=== PATIENT | female | born 1945 | race Caucasian/White ===

== ENCOUNTER 2016-12-24 19:49 | Observation (INO) | payer MEDICARE ==
[~2016-12-24] VITALS: Ht 160 cm; Wt 83.9 kg
[2016-12-24] MEDS ORDERED: IV NORMAL SALINE 1000ML BAG 1,000 ML IV SCH (20:06)
[2016-12-24] MEDS ORDERED: fentaNYL PF VIAL 100 MCG/2 ML VIAL IV PRN (20:15)
[2016-12-24 20:25] LABS: BASO # 0.1 x10^3/uL (0.0-0.2); BASO % 1 % (0-3); EOS % 2 % (0-3); HEMATOCRIT 39.3 % (36.0-47.0); LYMPH # 1.6 x10^3/uL (1.0-4.8); LYMPH % 20 % (24-48); MEAN CORPUSCULAR HEMOGLOBIN 28 pg (25-35); MEAN CORPUSCULAR HGB CONC 33 g/dL (31-37); MEAN CORPUSCULAR VOLUME 84 fL (79-100); MONO % 6 % (0-9); NEUT % 72 % (31-73); PLATELET COUNT 182 x10^3/uL (140-400); RED BLOOD COUNT 4.69 x10^6/uL (3.50-5.40); RED CELL DISTRIBUTION WIDTH 14.9 % (11.5-14.5)
[2016-12-24 20:37] LABS: CALCIUM 9.6 mg/dL (8.5-10.1); CREATININE 1.7 mg/dL (0.6-1.0); GFR 29.6; POTASSIUM 3.9 mmol/L (3.5-5.1)
[2016-12-24 20:39] LABS: PROTHROMBIN TIME PATIENT 12.9 SEC (11.7-14.0)
[2016-12-24 20:44] LABS: ALBUMIN 4.1 g/dL (3.4-5.0); ALBUMIN/GLOBULIN RATIO 1.2 (1.0-1.7); TOTAL BILIRUBIN 0.4 mg/dL (0.2-1.0); TOTAL PROTEIN 7.4 g/dL (6.4-8.2)
--- NOTE | 2016-12-24 21:21 | RAD ---
Abdominal and Pelvis CT, Without Contrast: History: Abdominal pain and nausea for 3 days Comparison: None. Procedure: Axial images are obtained of the abdomen and pelvis, without IV or oral contrast. CT Abdomen without Contrast: Findings: Evaluation of solid organs is limited without contrast. Evaluation of stomach and bowel is limited without oral contrast. Liver: Normal. Spleen: Normal. Pancreas: Normal. Adrenal Glands: Normal. Kidneys: There is a 2 mm nonobstructive stone in the lower pole of the left renal pelvis.. There is no free air or free fluid. There is no lymphadenopathy. Impression: Please see CT Pelvis without Contrast. End Impression. CT Pelvis without Contrast: Findings: The urinary bladder is mostly collapsed but appears normal. There is no free fluid. There is no lymphadenopathy. There is no pericolonic inflammation identified. There is moderate diverticulosis. Impression: No acute findings. End impression PQRS Compliance Statement: One or more of the following individualized dose reduction techniques were utilized for this examination: 1. Automated exposure control 2. Adjustment of the mA and/or kV according to patient size 3. Use of iterative reconstruction technique Electronically signed by: Solomon Garcia III, MD (12/24/2016 9:18 PM) [facility]
--- NOTE | 2016-12-24 21:39 | PHYS DOC ---
Past Medical History Past Medical History: Diabetes-Type II, Hypertension, Other Additional Past Medical Histor: obesity, "bad knees", incontinent Past Surgical History: Appendectomy, Cholecystectomy, Hysterectomy, Other Additional Past Surgical Histo: prolapsed bladder Alcohol Use: None Drug Use: None Adult General Chief Complaint Chief Complaint: ABDOMINAL PAIN HPI HPI Patient is a 71 year old female who presents with abdominal pain and inability to eat for 4 days now. It started Thursday in the middle of the night. She has had nausea which is much worse if she tries to eat or drink anything at all. She hasn't been able to eat or drink. She believe she is dehydrated. No vomiting. No diarrhea. She has a history of diverticulitis years ago and it kind of seems like that to her. She has had a cholecystectomy and appendectomy. Patient talk to her doctor at [facility] who told her to go to the ER and have the CT scan. She went to the ER at and states she was there all afternoon waiting in the waiting room, never did get back to a room, and she finally left and came here. Review of Systems Review of Systems Constitutional: Denies fever or chills [] Eyes: Denies change in visual acuity, redness, or eye pain [] HENT: Denies nasal congestion or sore throat [] Respiratory: Denies cough or shortness of breath [] Cardiovascular: Denies chest pain GI: As in history of present illness : Denies dysuria or hematuria [] Musculoskeletal: Denies back pain or joint pain [] Integument: Denies rash or skin lesions [] Neurologic: Denies headache, focal weakness or sensory changes [] Current Medications Current Medications Current Medications Medications (Trade) Dose Ordered Sig/[place] Start Time Stop Time Status Last Admin Dose Admin Fentanyl Citrate (Fentanyl 2ml Vial) 25 mcg PRN Q15MIN PRN 12/24/16 20:15 12/25/16 20:14 Sodium Chloride 1,000 ml @ 1,000 mls/hr Q1H 12/24/16 20:06 12/24/16 21:05 DC 12/24/16 20:15 1,000 MLS/HR Allergies Allergies Physical Exam Physical Exam Constitutional: Well developed, well nourished, no acute distress, non-toxic appearance. Alert, mentating normally. HENT: Normocephalic, atraumatic, bilateral external ears normal, oropharynx is dry, nose normal. [] Eyes: conjunctiva normal, no discharge. [] Neck: Normal range of motion, no stridor. [] Cardiovascular:Heart rate regular rhythm, no murmur [] Lungs & Thorax: Bilateral breath sounds clear to auscultation [] Abdomen: Nondistended, bowel sounds normal, soft, mildly tender to palpation throughout, no localized tenderness, no rebound or guarding, no masses, no pulsatile mass. Skin: Warm, dry, no erythema, no rash. [] Extremities: No tenderness, no cyanosis, no clubbing, ROM intact, no edema. [] Neurologic: Alert and oriented X 3, normal motor function, normal sensory function, no focal deficits noted. [] Current Patient Data Vital Signs Vital Signs Date Time Temp Pulse Resp B/P (MAP) Pulse Ox O2 Delivery O2 Flow Rate FiO2 12/24/16 21:09 87 16 115/66 (82) 95 Room Air 12/24/16 19:55 98.3 98.3 Lab Values Laboratory Tests Test 12/24/16 20:10 White Blood Count 8.0 x10^3/uL (4.0-11.0) Red Blood Count 4.69 x10^6/uL (3.50-5.40) Hemoglobin 13.0 g/dL (12.0-15.5) Hematocrit 39.3 % (36.0-47.0) Mean Corpuscular Volume 84 fL (79-100) Mean Corpuscular Hemoglobin 28 pg (25-35) Mean Corpuscular Hemoglobin Concent 33 g/dL (31-37) Red Cell Distribution Width 14.9 % (11.5-14.5) H Platelet Count 182 x10^3/uL (140-400) Neutrophils (%) (Auto) 72 % (31-73) Lymphocytes (%) (Auto) 20 % (24-48) L Monocytes (%) (Auto) 6 % (0-9) Eosinophils (%) (Auto) 2 % (0-3) Basophils (%) (Auto) 1 % (0-3) Neutrophils # (Auto) 5.7 x10^3uL (1.8-7.7) Lymphocytes # (Auto) 1.6 x10^3/uL (1.0-4.8) Monocytes # (Auto) 0.5 x10^3/uL (0.0-1.1) Eosinophils # (Auto) 0.1 x10^3/uL (0.0-0.7) Basophils # (Auto) 0.1 x10^3/uL (0.0-0.2) Prothrombin Time 12.9 SEC (11.7-14.0) Prothrombin Time INR 1.0 (0.8-1.1) PTT 28 SEC (24-38) Sodium Level 139 mmol/L (136-145) Potassium Level 3.9 mmol/L (3.5-5.1) Chloride Level 100 mmol/L (98-107) Carbon Dioxide Level 26 mmol/L (21-32) Anion Gap 13 (6-14) Blood Urea Nitrogen 39 mg/dL (7-20) H Creatinine 1.7 mg/dL (0.6-1.0) H Estimated GFR (Cockcroft-Gault) 29.6 BUN/Creatinine Ratio 23 (6-20) H Glucose Level 132 mg/dL (70-99) H Calcium Level 9.6 mg/dL (8.5-10.1) Total Bilirubin 0.4 mg/dL (0.2-1.0) Aspartate Amino Transferase (AST) 18 U/L (15-37) Alanine Aminotransferase (ALT) 23 U/L (14-59) Alkaline Phosphatase 94 U/L (46-116) Total Protein 7.4 g/dL (6.4-8.2) Albumin 4.1 g/dL (3.4-5.0) Albumin/Globulin Ratio 1.2 (1.0-1.7) Lipase 171 U/L (73-393) Laboratory Tests 12/24/16 20:10 Laboratory Tests 12/24/16 20:10 EKG EKG 12-lead EKG read by ak. Sinus rhythm. Heart rate 99. There are no acute ST or T wave changes indicative of ischemia or infarction. No STEMI. 1999[] Radiology/Procedures Radiology/Procedures CT scan of the abdomen and pelvis read by the radiologist. No acute findings. [] Course & Med Decision Making Course & Med Decision Making Pertinent Labs and Imaging studies reviewed. (See chart for details) 71-year-old female presents with abdominal pain and discomfort for 4 days now with nausea but no vomiting, and anorexia. The patient appears clinically dry, she is tachycardic. IV fluids were initiated. Labs, CT scan unremarkable for acute findings. The patient does appear dry with BUNs 39 creatinine 1.7. I'm concerned about her abdominal complaints for 4 days now without any finding to explain those today in the ED. I believe we should admit her for IV fluids and observation of her abdominal pain. I discussed the case with Dr. Lake, [facility] medicine. She will admit the patient. I wrote bridge orders. [] Dragon Disclaimer Dragon Disclaimer This electronic medical record was generated, in whole or in part, using a voice recognition dictation system. Departure Departure Impression: Primary Impression: Abdominal pain Additional Impressions: Nausea alone Dehydration Elevated serum creatinine Disposition: ADMITTED INPATIENT Admitting Physician: Glenna Lake Condition: STABLE Referrals: UNKNOWN PCP NAME (PCP) Problem Qualifiers RIN AMEZCUA MD Dec 24, 2016 21:39
[2016-12-24] MEDS ORDERED: ONDANSETRON PF 4 MG/2 ML VIAL. IV PRN (22:15)
[2016-12-24] MEDS: IV NORMAL SALINE 1000ML BAG 1,000 ML IV SCH (22:16)
[2016-12-24 23:01] VITALS: BP 139/65
[2016-12-25] MEDS ORDERED: LISI1TAB5 PO (00:10)
[2016-12-25] MEDS ORDERED: METO50TA2 PO (00:10)
[2016-12-25] MEDS ORDERED: METF500T4 PO (00:10)
[2016-12-25] MEDS ORDERED: vitamin d (00:11)
[2016-12-25 03:17] VITALS: BP 119/56
--- NOTE | 2016-12-25 06:57 | EKG ---
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
[2016-12-25 07:00] VITALS: BP 116/59
[2016-12-25] MEDS: IV NORMAL SALINE 1000ML BAG 1,000 ML IV SCH ×2 (08:25→18:44)
--- NOTE | 2016-12-25 09:55 | PDOC1 ---
History and Physical Date of Admission Date of Admission DATE: 12/25/16 TIME: 09:00 Identification/Chief Complaint Chief Complaint Abd pain Problems: Source Source: Patient History of Present Illness History of Present Illness Mrs Panda is a 71 y/o woman with DM, HTN and prior history of diverticulitis, who presented to the ER with a 4 day history of nausea and right sided abd pain. She denies any vomiting, but has been unable to eat as just the thought turns her stomach. She has chronic diarrhea 1-3 times a day normally, this has not changed in the past week. The pain is in her right side , cramping and waxing and waning, similar to her prior episode of diverticulosis. She is s/p appendectomy and cholecystectomy. She denies any fever or chills, byt endorses generalized myalgias and arthralgias. 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 In the ER, CT abd showed moderate diverticulosis, but no acute findings, incl no inflammatory stranding. Past Medical History Cardiovascular: HTN GI: Diverticulosis, Other (chronic diarrhea) Renal/: Urinary Incontinence Endocrine: Diabetes Past Surgical History Past Surgical History: Appendectomy, Cholecystectomy, Hysterectomy, Other ( bladder augmentation) Family History Family History: Cancer, Coronary Artery Disease, Diabetes Social History Smoke: No ALCOHOL: none Drugs: None Current Medications Current Medications Current Medications Fentanyl Citrate (Fentanyl 2ml Vial) 25 mcg PRN Q15MIN PRN IV PAIN GREATER THAN 3/10; Start 12/24/16 at 20:15; Stop 12/25/16 at 20:14 Sodium Chloride 1,000 ml @ 1,000 mls/hr Q1H IV Last administered on 12/24/16t 20:15; Start 12/24/16 at 20:06; Stop 12/24/16 at 21:05; Status DC Ondansetron HCl (Zofran) 4 mg PRN Q8HRS PRN IV NAUSEA/VOMITING; Start 12/24/16 at 22:15; Stop 12/25/16 at 22:14 Sodium Chloride 1,000 ml @ 100 mls/hr Q10H IV Last administered on 12/25/16t 08:25; Start 12/24/16 at 22:01; Stop 12/25/16 at 22:00 Acetaminophen (Tylenol) 650 mg PRN Q6HRS PRN PO MILD PAIN; Start 12/24/16 at 23 :00 Active Scripts Active Reported [vitamin d] Lisinopril-Hctz 20-12.5 Mg Tab (Lisinopril/Hydrochlorothiazide) 1 Each Tablet 1 Tab PO BID Metformin Hcl 500 Mg Tablet 500 Mg PO BIDWMEALS Metoprolol Tartrate 50 Mg Tablet 1 Tab PO BID Allergies Allergies: Coded Allergies: clindamycin (Verified Allergy, Intermediate, 12/24/16) iodine (Verified Allergy, Intermediate, 12/24/16) sulfamethoxazole (Verified Allergy, Intermediate, 12/24/16) trimethoprim (Verified Allergy, Intermediate, 12/24/16) ROS Review of System positive as per HPI. rest of organ system review does not reveal any findings Physical Exam General: Alert, Oriented X3, Cooperative, No acute distress Lungs: Clear to auscultation Heart: RRR Abdomen: Normal bowel sounds, Soft, Other (right TTP, worse in LQ) Extremities: No clubbing, No edema Skin: No rashes Neuro: Normal speech Psych/Mental Status: Mental status NL Vitals Vitals Vital Signs Date Time Temp Pulse Resp B/P (MAP) Pulse Ox O2 Delivery O2 Flow Rate FiO2 12/25/16 08:25 Room Air 12/25/16 07:00 97.4 83 18 116/59 (78) 95 97.4 Labs Labs Laboratory Tests Test 12/24/16 20:10 12/25/16 08:33 White Blood Count 8.0 x10^3/uL (4.0-11.0) Red Blood Count 4.69 x10^6/uL (3.50-5.40) Hemoglobin 13.0 g/dL (12.0-15.5) Hematocrit 39.3 % (36.0-47.0) Mean Corpuscular Volume 84 fL (79-100) Mean Corpuscular Hemoglobin 28 pg (25-35) Mean Corpuscular Hemoglobin Concent 33 g/dL (31-37) Red Cell Distribution Width 14.9 % (11.5-14.5) Platelet Count 182 x10^3/uL (140-400) Neutrophils (%) (Auto) 72 % (31-73) Lymphocytes (%) (Auto) 20 % (24-48) Monocytes (%) (Auto) 6 % (0-9) Eosinophils (%) (Auto) 2 % (0-3) Basophils (%) (Auto) 1 % (0-3) Neutrophils # (Auto) 5.7 x10^3uL (1.8-7.7) Lymphocytes # (Auto) 1.6 x10^3/uL (1.0-4.8) Monocytes # (Auto) 0.5 x10^3/uL (0.0-1.1) Eosinophils # (Auto) 0.1 x10^3/uL (0.0-0.7) Basophils # (Auto) 0.1 x10^3/uL (0.0-0.2) Prothrombin Time 12.9 SEC (11.7-14.0) Prothromb Time International Ratio 1.0 (0.8-1.1) Activated Partial Thromboplast Time 28 SEC (24-38) Sodium Level 139 mmol/L (136-145) Potassium Level 3.9 mmol/L (3.5-5.1) Chloride Level 100 mmol/L (98-107) Carbon Dioxide Level 26 mmol/L (21-32) Anion Gap 13 (6-14) Blood Urea Nitrogen 39 mg/dL (7-20) Creatinine 1.7 mg/dL (0.6-1.0) Estimated GFR (Cockcroft-Gault) 29.6 BUN/Creatinine Ratio 23 (6-20) Glucose Level 132 mg/dL (70-99) Calcium Level 9.6 mg/dL (8.5-10.1) Total Bilirubin 0.4 mg/dL (0.2-1.0) Aspartate Amino Transf (AST/SGOT) 18 U/L (15-37) Alanine Aminotransferase (ALT/SGPT) 23 U/L (14-59) Alkaline Phosphatase 94 U/L (46-116) Total Protein 7.4 g/dL (6.4-8.2) Albumin 4.1 g/dL (3.4-5.0) Albumin/Globulin Ratio 1.2 (1.0-1.7) Lipase 171 U/L (73-393) Glucose (Fingerstick) 128 mg/dL (70-99) Laboratory Tests Test 12/24/16 20:10 12/25/16 08:33 White Blood Count 8.0 x10^3/uL (4.0-11.0) Red Blood Count 4.69 x10^6/uL (3.50-5.40) Hemoglobin 13.0 g/dL (12.0-15.5) Hematocrit 39.3 % (36.0-47.0) Mean Corpuscular Volume 84 fL (79-100) Mean Corpuscular Hemoglobin 28 pg (25-35) Mean Corpuscular Hemoglobin Concent 33 g/dL (31-37) Red Cell Distribution Width 14.9 % (11.5-14.5) Platelet Count 182 x10^3/uL (140-400) Neutrophils (%) (Auto) 72 % (31-73) Lymphocytes (%) (Auto) 20 % (24-48) Monocytes (%) (Auto) 6 % (0-9) Eosinophils (%) (Auto) 2 % (0-3) Basophils (%) (Auto) 1 % (0-3) Neutrophils # (Auto) 5.7 x10^3uL (1.8-7.7) Lymphocytes # (Auto) 1.6 x10^3/uL (1.0-4.8) Monocytes # (Auto) 0.5 x10^3/uL (0.0-1.1) Eosinophils # (Auto) 0.1 x10^3/uL (0.0-0.7) Basophils # (Auto) 0.1 x10^3/uL (0.0-0.2) Prothrombin Time 12.9 SEC (11.7-14.0) Prothromb Time International Ratio 1.0 (0.8-1.1) Activated Partial Thromboplast Time 28 SEC (24-38) Sodium Level 139 mmol/L (136-145) Potassium Level 3.9 mmol/L (3.5-5.1) Chloride Level 100 mmol/L (98-107) Carbon Dioxide Level 26 mmol/L (21-32) Anion Gap 13 (6-14) Blood Urea Nitrogen 39 mg/dL (7-20) Creatinine 1.7 mg/dL (0.6-1.0) Estimated GFR (Cockcroft-Gault) 29.6 BUN/Creatinine Ratio 23 (6-20) Glucose Level 132 mg/dL (70-99) Calcium Level 9.6 mg/dL (8.5-10.1) Total Bilirubin 0.4 mg/dL (0.2-1.0) Aspartate Amino Transf (AST/SGOT) 18 U/L (15-37) Alanine Aminotransferase (ALT/SGPT) 23 U/L (14-59) Alkaline Phosphatase 94 U/L (46-116) Total Protein 7.4 g/dL (6.4-8.2) Albumin 4.1 g/dL (3.4-5.0) Albumin/Globulin Ratio 1.2 (1.0-1.7) Lipase 171 U/L (73-393) Glucose (Fingerstick) 128 mg/dL (70-99) VTE Prophylaxis Ordered VTE Prophylaxis Devices: No VTE Pharmacological Prophylaxi: Yes Assessment/Plan Assessment/Plan Mrs Panda is a 71 y/o woman with HTN, DM and history of right sided diverticulitis who presented to the ER with abd pain and nausea ans resultant dehydration. Clinical suspicion is for diverticulitis, although not confirmed by CT. Will give her bowel rest, advance diet as tolerated. Start cipro and flagyl empirically She is receiving IV hydration; will monitor fluid status and electrolytes. Potassium was low as admission and is being repleted. Her creatinine is moderately elevated, which is most likely to dehydration. Monitor closely. Avoid nephrotoxic meds, incl metformin and HCTZ. Her DM is currently well controlled. will add ISS to her regimen. The rationale of the medication switch was explained to her; she was afraid of being placed on insulin permanently. Her blood pressure is currently ok; home medications, minus HCTZ will be continued. For prophylaxis, she will receive heparin SQ and H2 denzel. SALLY MARTIN MD Dec 25, 2016 09:55
[2016-12-25 11:00] VITALS: BP 112/47
[2016-12-25 15:00] VITALS: BP 116/55
[2016-12-25] MEDS: ACETAMINOPHEN 325 MG TABLET. PO PRN (16:44)
[2016-12-25] MEDS: CIPROFLOXACIN HCL 250 MG TABLET. PO SCH (18:44)
[2016-12-25] MEDS: metroNIDAZOLE 500 MG TABLET PO SCH ×2 (18:44→23:03)
[2016-12-25 19:20] VITALS: BP 114/55
[2016-12-25] MEDS: METOPROLOL TART IMMED RELEASE 50 MG TABLET. PO SCH (21:04)
[2016-12-25 23:20] VITALS: BP 118/58
[2016-12-26] MEDS: ACETAMINOPHEN 325 MG TABLET. PO PRN (01:38)
[2016-12-26 03:20] VITALS: BP 115/60
[2016-12-26] MEDS: metroNIDAZOLE 500 MG TABLET PO SCH ×2 (05:31→14:33)
[2016-12-26 07:22] VITALS: BP 130/55
[2016-12-26] MEDS ORDERED: LISINOPRIL 20 MG TABLET PO SCH (09:00)
[2016-12-26] MEDS: CIPROFLOXACIN HCL 250 MG TABLET. PO SCH (09:08)
[2016-12-26] MEDS: METOPROLOL TART IMMED RELEASE 50 MG TABLET. PO SCH (09:09)
[2016-12-26 11:21] VITALS: BP 109/60
--- NOTE | 2016-12-26 13:32 | PDOC ---
PROGRESS NOTES Chief Complaint Chief Complaint Abd pain: ASSESSMENT AND PLAN: 1. Abd pain: suspected diverticulitis. clinically much improved. 2. Dehydration: resolved 3. KVNG: vasomotor, resolved with IVF 4. DM2: controlled on current regimen 5. HTN: no home meds 6. Prophylaxis: heparin SQ and H2 denzel. 7. Dispo: would like to go home. d/w with Abx History of Present Illness History of Present Illness in good spirits, abd pain resolved. Vitals Vitals Vital Signs Date Time Temp Pulse Resp B/P (MAP) Pulse Ox O2 Delivery O2 Flow Rate FiO2 12/26/16 11:21 98.3 73 18 109/60 (76) 96 Room Air 98.3 Physical Exam General: Alert, Oriented X3, Cooperative, No acute distress Heart: Regular rate Lungs: Clear Abdomen: Normal bowel sounds, Soft, No tenderness Extremities: No clubbing, No edema Skin: No rashes Labs LABS Laboratory Tests Test 12/25/16 16:47 12/26/16 07:17 Glucose (Fingerstick) 178 mg/dL (70-99) 157 mg/dL (70-99) SALLY MARTIN MD Dec 26, 2016 13:32
[2016-12-26 14:27] LABS: BASO % 1 % (0-3); EOS % 5 % (0-3); HEMATOCRIT 34.3 % (36.0-47.0); HEMOGLOBIN 11.2 g/dL (12.0-15.5); LYMPH % 23 % (24-48); MEAN CORPUSCULAR HEMOGLOBIN 28 pg (25-35); MEAN CORPUSCULAR HGB CONC 33 g/dL (31-37); MEAN CORPUSCULAR VOLUME 85 fL (79-100); MONO % 8 % (0-9); NEUT % 63 % (31-73); PLATELET COUNT 157 x10^3/uL (140-400); RED BLOOD COUNT 4.03 x10^6/uL (3.50-5.40); RED CELL DISTRIBUTION WIDTH 14.6 % (11.5-14.5); WHITE BLOOD COUNT 4.2 x10^3/uL (4.0-11.0)
[2016-12-26 14:33] LABS: CALCIUM 8.9 mg/dL (8.5-10.1); CREATININE 0.9 mg/dL (0.6-1.0); GFR 61.7; MAGNESIUM 1.4 mg/dL (1.8-2.4); POTASSIUM 4.2 mmol/L (3.5-5.1)
[2016-12-26] MEDS ORDERED: METR500T PO (15:01)
[2016-12-26] MEDS ORDERED: CIPR500T94 PO (15:01)
[2016-12-26 15:05] VITALS: BP 114/44
--- NOTE | 2016-12-27 23:48 | DS ---
DATE OF DISCHARGE: 12/26/2016 CHIEF COMPLAINT: Abdominal pain. HOSPITAL COURSE: The patient is a 71-year-old woman with diabetes and hypertension as well as history of diverticulitis who presented to the Emergency Room with a 4-day history of nausea and right-sided abdominal pain, had not been vomiting, but had been completely unable to take anything p.o. This was similar to prior symptoms with diverticulitis. In the Emergency Room, CT did not reveal any inflammatory signs. Nevertheless, she was admitted with a presumptive diagnosis of diverticulitis and started on Cipro and Flagyl. She was placed on clear fluids with IV hydration and antiemetics p.r.n. She actually improved significantly from a GI standpoint and her diet was advanced. In her labs, she had acute kidney injury with a creatinine of 1.7. This actually improved with hydration down to a creatinine of 0.9. Metformin had been held during her hospitalization and her blood sugars were monitored with insulin sliding scale, remaining very well controlled. PHYSICAL EXAMINATION: VITAL SIGNS: Show a blood pressure of 109/60, heart rate of 73, respiratory rate at 18. She was afebrile. GENERAL: This is an obese 71-year-old woman, alert and oriented, in no acute distress. LUNGS: Clear. HEART: Regular rate and rhythm. ABDOMEN: Has positive bowel sounds, soft, nontender. EXTREMITIES: Showed no edema. DISCHARGE DATE: 12/26/2016. DISCHARGE DIAGNOSIS: Abdominal pain, diverticulitis. DISCHARGE DISPOSITION: To home. DISCHARGE CONDITION: Improved. DISCHARGE MEDICATIONS: Please refer to MAR. DISCHARGE INSTRUCTIONS: The patient will follow up with her PCP in 1-2 weeks. SALLY MART[address] MD [address]: RIMA/nts JOB#: [id number] / [id number] TISH
== END 2016-12-26 16:20 | disposition home or self-care (01) ==
LOC: ER 19:49 → 6 SOUTH 21:52
PROVIDERS: ADMIT Internal Medicine; ATTEND Internal Medicine
DX: K57.92 Diverticulitis of intestine, part unspecified, without perforation or abscess without bleeding (principal); N17.9 Acute kidney failure, unspecified; E86.0 Dehydration; E11.9 Type 2 diabetes mellitus without complications; I10 Essential (primary) hypertension; E66.9 Obesity, unspecified; Z90.49 Acquired absence of other specified parts of digestive tract; Z83.3 Family history of diabetes mellitus; Z82.49 Family history of ischemic heart disease and other diseases of the circulatory system
CPT/HCPCS: 36415; 74176; 80048; 80053; 82962; 83690; 83735; 85027; 85610; 85730; 93005; 96360; 96361; 99285; G0378; J7030; G0379; A6539

== ENCOUNTER 2018-08-22 17:25 | Inpatient (IN) | payer MEDICARE ==
[~2018-08-22] VITALS: Ht 160 cm; Wt 86.2 kg
[~2018-08-22 17:25] MED LIST: CIPR500T94 PO; LISI1TAB5 PO; METF500T16 PO; METO50TA6 PO; METR500T PO; vitamin d
[2018-08-22 18:47] LABS: BASO % 0 % (0-3); EOS % 0 % (0-3); HEMOGLOBIN 12.5 g/dL (12.0-15.5); LYMPH # 0.6 x10^3/uL (1.0-4.8); LYMPH % 13 % (24-48); MEAN CORPUSCULAR HEMOGLOBIN 27 pg (25-35); MEAN CORPUSCULAR HGB CONC 33 g/dL (31-37); MEAN CORPUSCULAR VOLUME 82 fL (79-100); MONO # 0.3 x10^3/uL (0.0-1.1); MONO % 7 % (0-9); NEUT % 81 % (31-73); PLATELET COUNT 150 x10^3/uL (140-400); RED BLOOD COUNT 4.63 x10^6/uL (3.50-5.40); RED CELL DISTRIBUTION WIDTH 14.9 % (11.5-14.5)
[2018-08-22 18:55] LABS: BILIRUBIN,URINE NEGATIVE (NEG); CLARITY,URINE CLEAR; COLOR,URINE YELLOW; NITRITE,URINE NEGATIVE (NEG); PROTEIN,URINE 100 mg/dL (NEG-TRACE); UROBILINOGEN,URINE 0.2 mg/dL (0.2 mg/dL)
[2018-08-22 18:56] LABS: CALCIUM 8.6 mg/dL (8.5-10.1); CREATININE 1.3 mg/dL (0.6-1.0); GFR 40.2; POTASSIUM 3.7 mmol/L (3.5-5.1)
[2018-08-22 19:03] LABS: ALBUMIN 3.7 g/dL (3.4-5.0); ALBUMIN/GLOBULIN RATIO 1.3 (1.0-1.7); MAGNESIUM 1.2 mg/dL (1.8-2.4); TOTAL BILIRUBIN 0.2 mg/dL (0.2-1.0); TOTAL PROTEIN 6.6 g/dL (6.4-8.2)
[2018-08-22 19:05] LABS: RBC,URINE 0 /HPF (0-2)
[2018-08-22 19:06] LABS: BACTERIA,URINE 0 /HPF (0-FEW); HYALINE CASTS, URINE MANY /HPF; SQUAMOUS EPITHELIAL CELL,UR MANY /LPF; WBC,URINE RARE /HPF (0-4)
--- NOTE | 2018-08-22 19:06 | PHYS DOC ---
Past Medical History Past Medical History: Arthritis, Diabetes-Type II, Hypertension Additional Past Medical Histor: obesity, "bad knees", incontinent Past Surgical History: Appendectomy, Cholecystectomy, Hysterectomy, Other Additional Past Surgical Histo: prolapsed bladder Alcohol Use: None Drug Use: None Adult General Chief Complaint Chief Complaint: WEAKNESS/GENERALIZED HPI HPI Patient is a 73 year old female who presents to emergency room with complaints of a continued productive cough with clear sputum, body aches, fatigue, and diarrhea. Patient states her symptoms began 4 days ago, she was seen at her primary care provider's office 3 days ago and had testing for influenza that was negative. She was diagnosed with bronchitis on Thursday. She denies any nausea , vomiting, abdominal pain, or fever. At this time patient states she feels weak all over, she denies any chest pain, and reports shortness of breath with cough. Review of Systems Review of Systems Constitutional: Denies fever or chills ; reports generalized fatigue and weakness. ] Eyes: Denies changes HENT: Denies nasal congestion or sore throat [] Respiratory: See HPI Cardiovascular: No additional information not addressed in HPI [] GI: Denies abdominal pain, nausea, vomiting,or diarrhea [] : Denies dysuria or hematuria [] Musculoskeletal: reports generalized body aches Integument: Denies rash or skin lesions [] Neurologic: Denies headache complete systems were reviewed and found to be within normal limits, except as documented in this note. Allergies Allergies Allergies Coded Allergies Type Severity Reaction Last Updated Verified clindamycin Allergy Intermediate 12/24/16 Yes iodine Allergy Intermediate 12/24/16 Yes sulfamethoxazole Allergy Intermediate 12/24/16 Yes trimethoprim Allergy Intermediate 12/24/16 Yes Physical Exam Physical Exam Constitutional: Well developed, well nourished, no acute distress, ill appearance. [] HENT: Normocephalic, atraumatic, bilateral external ears normal, oropharynx dry , no oral exudates, nose normal. [] Eyes: conjunctiva normal, no discharge. [] Neck: Normal range of motion, no stridor. [] Cardiovascular: tachycardic rhythm, no murmur [] Lungs & Thorax: Bilateral breath sounds clear to auscultation, diminished in bases bilat [] Skin: Warm, dry, no erythema, no rash. [] Extremities: No cyanosis, no clubbing, ROM intact, no edema. [] Neurologic: Alert and oriented X 3, no focal deficits noted. [] Psychologic: Affect normal, judgement normal, mood normal. [] Current Patient Data Vital Signs Vital Signs Date Time Temp Pulse Resp B/P (MAP) Pulse Ox O2 Delivery O2 Flow Rate FiO2 08/22/18 17:30 98.2 63 22 125/53 (77) 93 Room Air 98.2 Lab Values Laboratory Tests Test 08/22/18 18:15 08/22/18 18:25 08/22/18 18:30 Urine Collection Type Void Urine Color Yellow Urine Clarity Clear Urine pH 5.0 Urine Specific [place] 1.020 Urine Protein 100 mg/dL (NEG-TRACE) Urine Glucose (UA) Negative mg/dL (NEG) Urine Ketones (Stick) Trace mg/dL (NEG) Urine Blood Negative (NEG) Urine Nitrite Negative (NEG) Urine Bilirubin Negative (NEG) Urine Urobilinogen Dipstick 0.2 mg/dL (0.2 mg/dL) Urine Leukocyte Esterase Negative (NEG) Urine RBC 0 /HPF (0-2) Urine WBC Rare /HPF (0-4) Urine Squamous Epithelial Cells Many /LPF Urine Bacteria 0 /HPF (0-FEW) Urine Hyaline Casts Many /HPF White Blood Count 5.0 x10^3/uL (4.0-11.0) Red Blood Count 4.63 x10^6/uL (3.50-5.40) Hemoglobin 12.5 g/dL (12.0-15.5) Hematocrit 38.0 % (36.0-47.0) Mean Corpuscular Volume 82 fL (79-100) Mean Corpuscular Hemoglobin 27 pg (25-35) Mean Corpuscular Hemoglobin Concent 33 g/dL (31-37) Red Cell Distribution Width 14.9 % (11.5-14.5) H Platelet Count 150 x10^3/uL (140-400) Neutrophils (%) (Auto) 81 % (31-73) H Lymphocytes (%) (Auto) 13 % (24-48) L Monocytes (%) (Auto) 7 % (0-9) Eosinophils (%) (Auto) 0 % (0-3) Basophils (%) (Auto) 0 % (0-3) Neutrophils # (Auto) 4.0 x10^3uL (1.8-7.7) Lymphocytes # (Auto) 0.6 x10^3/uL (1.0-4.8) L Monocytes # (Auto) 0.3 x10^3/uL (0.0-1.1) Eosinophils # (Auto) 0.0 x10^3/uL (0.0-0.7) Basophils # (Auto) 0.0 x10^3/uL (0.0-0.2) Sodium Level 135 mmol/L (136-145) L Potassium Level 3.7 mmol/L (3.5-5.1) Chloride Level 99 mmol/L (98-107) Carbon Dioxide Level 24 mmol/L (21-32) Anion Gap 12 (6-14) Blood Urea Nitrogen 27 mg/dL (7-20) H Creatinine 1.3 mg/dL (0.6-1.0) H Estimated GFR (Cockcroft-Gault) 40.2 BUN/Creatinine Ratio 21 (6-20) H Glucose Level 165 mg/dL (70-99) H Calcium Level 8.6 mg/dL (8.5-10.1) Magnesium Level 1.2 mg/dL (1.8-2.4) L Total Bilirubin 0.2 mg/dL (0.2-1.0) Aspartate Amino Transferase (AST) 34 U/L (15-37) Alanine Aminotransferase (ALT) 32 U/L (14-59) Alkaline Phosphatase 77 U/L (46-116) Creatine Kinase 666 U/L (26-192) H Creatine Kinase MB (Mass) 1.4 ng/mL (0.0-3.6) Creatine Kinase MB Relative Index 0.2 % (0-4) Troponin I Quantitative < 0.017 ng/mL (0.000-0.055) Total Protein 6.6 g/dL (6.4-8.2) Albumin 3.7 g/dL (3.4-5.0) Albumin/Globulin Ratio 1.3 (1.0-1.7) Influenza Type A Antigen Positive (NEGATIVE) Influenza Type B Antigen Negative (NEGATIVE) Laboratory Tests 08/22/18 18:25 Laboratory Tests 08/22/18 18:25 EKG EKG 1914- Sinus tach, no STEMI, rate 101, read by Dr Barrientos.[] Radiology/Procedures Radiology/Procedures RLL pneumonia read by Dr. Barrientos] Course & Med Decision Making Course & Med Decision Making Pertinent Labs and Imaging studies reviewed. (See chart for details) Dx: Influenza A, dehydration, generalized weakness, RLL pneumonia Pt was given 1L NS in the ER. Dr. Melgoza was contacted and decision to admit was made. 1 gm of rocephin and 500 mg of IV zithromax was ordered for treatment of RLL pneumonia. [] Dragon Disclaimer Dragon Disclaimer This electronic medical record was generated, in whole or in part, using a voice recognition dictation system. Departure Departure Impression: Primary Impression: Influenza A Additional Impressions: Dehydration Weakness Pneumonia and influenza Disposition: 01 HOME, SELF-CARE Admitting Physician: Yanira Melgoza Condition: STABLE Referrals: UNKNOWN PCP NAME (PCP) Problem Qualifiers BRENNEN JESUS APRN Aug 22, 2018 19:06
[2018-08-22 19:12] LABS: INFLUENZA A PATIENT POSITIVE (NEGATIVE); INFLUENZA B PATIENT NEGATIVE (NEGATIVE)
[2018-08-22] MEDS ORDERED: IV NORMAL SALINE 1000ML BAG 1,000 ML IV ONE (20:00)
[2018-08-22] MEDS ORDERED: CETIRIZINE HCL 10 MG TABLET. PO PRN (20:15)
[2018-08-22] MEDS ORDERED: TEMAZEPAM 7.5 MG CAPSULE PO PRN (20:15)
[2018-08-22] MEDS ORDERED: DEXTROSE 50% 25 GM / 50ML DISP.SYRIN. IV PRN (20:30)
[2018-08-22 20:35] VITALS: BP 128/35
--- NOTE | 2018-08-22 20:35 | NUR ---
Patient admitted from ER to room 440 per wheelchair. Admitting dx: influenza A +,weakness and dehydration. Patient also has productive cough and RLL pneumonia. Patient is alert and oriented x4. Patient lives alone. Patient c/o of getting sick 4 days ago with current illness. Patient c/o of being very weak. Patient admitted for treatment of current symptoms with IV fluids, tamiflu and antibiotics. Patient states she has insomnia and hasn't slept well for a while. Patient states she was using a C-pap at home for a short time but her doctor told her she no longer needed it. Will continue to monitor patient.
[2018-08-22] MEDS ORDERED: cefTRIAXone IV Push 1 GM VIAL. IVP ONE (22:00)
[2018-08-22] MEDS ORDERED: AZITHROMYCIN 500 MG in IV NORMAL SALINE 250ML 250 ML IV ONE (22:00)
[2018-08-22] MEDS: OSELTAMIVIR 30 MG CAPSULE PO SCH (22:43)
[2018-08-22] MEDS: METOPROLOL TART IMMED RELEASE 50 MG TABLET. PO SCH (22:46)
[2018-08-22] MEDS: IV NORMAL SALINE 1000ML BAG 1,000 ML IV SCH (22:47)
[2018-08-22 23:00] VITALS: BP 135/61
[2018-08-23] MEDS: guaiFENesin DM 200MG/20MG 10 ML SYRUP PO PRN ×3 (00:49→18:16)
[2018-08-23 03:00] VITALS: BP 131/101
[2018-08-23 05:00] LABS: CALCIUM 8.2 mg/dL (8.5-10.1); CREATININE 1.1 mg/dL (0.6-1.0); GFR 48.7; POTASSIUM 3.4 mmol/L (3.5-5.1)
--- NOTE | 2018-08-23 06:54 | EKG ---
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
[2018-08-23 07:00] VITALS: BP 147/91
[2018-08-23] MEDS: INSULIN LISPRO 300 UNITS/3 ML INSULN.PEN. SQ SCH ×3 (07:59→17:00)
--- NOTE | 2018-08-23 08:03 | RAD ---
CHEST PA LATERAL CLINICAL INDICATION: COUGH COMPARISON: None FINDINGS: Heart is normal in size. Lungs are hyperinflated. No pneumothorax or pleural effusion. Visualized bony thorax is within normal limits. IMPRESSION: Findings of COPD. Superimposed atypical/viral infection not ruled out. Electronically signed by: Kush Blanco DO (08/23/2018 7:59 AM) [facility]
[2018-08-23] MEDS: CHOLECALCIFEROL (VITAMIN D3) 1,000 UNIT TABLET PO SCH (08:37)
[2018-08-23] MEDS: hydroCHLOROthiazide 12.5 MG CAPSULE PO SCH ×2 (08:38→17:03)
[2018-08-23] MEDS: LISINOPRIL 20 MG TABLET PO SCH ×2 (08:39→17:09)
[2018-08-23] MEDS: METOPROLOL TART IMMED RELEASE 50 MG TABLET. PO SCH ×2 (08:40→20:55)
[2018-08-23] MEDS: metFORMIN 500 MG TABLET PO SCH ×2 (08:40→17:09)
[2018-08-23] MEDS: ACETAMINOPHEN 500 MG TABLET PO PRN (08:40)
[2018-08-23] MEDS: OSELTAMIVIR 30 MG CAPSULE PO SCH ×2 (08:40→20:55)
[2018-08-23] MEDS: ALBUTEROL SULFATE 2.5 MG/3 ML NEBU. NEB PRN ×4 (08:50→20:45)
--- NOTE | 2018-08-23 09:54 | NUR ---
IP: Pt is influenza + requiring droplet precautions for 5 days and 24 hours without a fever, whichever is longest.
[2018-08-23] MEDS: IV NORMAL SALINE 1000ML BAG 1,000 ML IV SCH ×2 (10:45→11:26)
[2018-08-23 11:00] VITALS: BP 109/51
[2018-08-23] MEDS: cefTRIAXone IV Push 1 GM VIAL. IVP SCH (11:26)
[2018-08-23] MEDS: AZITHROMYCIN 500 MG in IV NORMAL SALINE 250ML 250 ML IV SCH (11:26)
--- NOTE | 2018-08-23 12:48 | NUR ---
SS following for discharge planning. SS reviewed pt chart. Pt is from home and is currently on room air. No discharge needs noted at this time. SS will continue to follow for pending discharge needs.
[2018-08-23 15:00] VITALS: BP 105/52
[2018-08-23 19:00] VITALS: BP 106/58
[2018-08-23 23:00] VITALS: BP 108/59
[2018-08-24] MEDS: guaiFENesin DM 200MG/20MG 10 ML SYRUP PO PRN ×4 (00:33→22:53)
[2018-08-24] MEDS: ACETAMINOPHEN 500 MG TABLET PO PRN (00:33)
[2018-08-24] MEDS: IV NORMAL SALINE 1000ML BAG 1,000 ML IV SCH ×2 (00:34→12:21)
[2018-08-24 03:00] VITALS: BP 136/54
[2018-08-24 07:00] VITALS: BP 144/79
[2018-08-24] MEDS: ALBUTEROL SULFATE 2.5 MG/3 ML NEBU. NEB PRN ×3 (07:31→17:00)
[2018-08-24] MEDS: INSULIN LISPRO 300 UNITS/3 ML INSULN.PEN. SQ SCH ×3 (09:17→16:43)
[2018-08-24] MEDS: LISINOPRIL 20 MG TABLET PO SCH ×2 (09:17→16:35)
[2018-08-24] MEDS: metFORMIN 500 MG TABLET PO SCH ×2 (09:17→16:36)
[2018-08-24] MEDS: METOPROLOL TART IMMED RELEASE 50 MG TABLET. PO SCH ×2 (09:17→21:26)
[2018-08-24] MEDS: hydroCHLOROthiazide 12.5 MG CAPSULE PO SCH ×2 (09:17→16:36)
[2018-08-24] MEDS: CHOLECALCIFEROL (VITAMIN D3) 1,000 UNIT TABLET PO SCH (09:17)
[2018-08-24] MEDS: OSELTAMIVIR 30 MG CAPSULE PO SCH ×2 (09:38→21:26)
--- NOTE | 2018-08-24 10:25 | NUR ---
Telemetry DCd per protocol. No significant arrhythmias since admission. Bigeminy on this morning's strip but this is part of Pt's baseline.
--- NOTE | 2018-08-24 10:54 | PDOC ---
PROGRESS NOTES Chief Complaint Chief Complaint Influenza A Pneumonia Weakness Cough COPD Dehydration Hypokalemia History of Present Illness History of Present Illness Pt was seen and examined She was resting comfortably in chair with NAD Discussed with RN Pt did not have any further complaints today Vitals Vitals Vital Signs Date Time Temp Pulse Resp B/P (MAP) Pulse Ox O2 Delivery O2 Flow Rate FiO2 08/24/18 09:17 95 144/79 08/24/18 07:31 Room Air 08/24/18 07:00 98.4 16 94 98.4 Physical Exam General: Alert, Oriented X3, Cooperative, No acute distress Heart: Regular rate, Normal S1, Normal S2 Lungs: Other (Decreased BS bilaterally) Abdomen: Normal bowel sounds, Soft Extremities: No clubbing, No cyanosis Skin: No rashes, No breakdown Labs LABS Laboratory Tests Test 08/23/18 11:45 08/23/18 16:29 08/23/18 20:32 08/24/18 08:12 Glucose (Fingerstick) 149 mg/dL (70-99) 113 mg/dL (70-99) 150 mg/dL (70-99) 128 mg/dL (70-99) Review of Systems Review of Systems Pt reports mild SOB and some mild CP with deep inspiration Pt denies [place], n/v Assessment and Plan Assessmemt and Plan Problems Medical Problems: (1) Pneumonia and influenza Status: Acute Assessment Influenza A Pneumonia Weakness Cough COPD Dehydration Hypokalemia Plan ABx for RLL PNA Tamilflu for Flu A+ CXR showed signs of COPD SS consult for SNU eval Home meds Labs in AM- monitor K+, mildly hypokalemic today PT/OT DVT proph D/C dispo pending Comment Review of Relevant I have reviewed the following items argelia (where applicable) has been applied. Labs Laboratory Tests Test 08/22/18 18:15 08/22/18 18:25 08/22/18 18:30 08/22/18 20:46 Urine Collection Type Void Urine Color Yellow Urine Clarity Clear Urine pH 5.0 Urine Specific [place] 1.020 Urine Protein 100 mg/dL (NEG-TRACE) Urine Glucose (UA) Negative mg/dL (NEG) Urine Ketones (Stick) Trace mg/dL (NEG) Urine Blood Negative (NEG) Urine Nitrite Negative (NEG) Urine Bilirubin Negative (NEG) Urine Urobilinogen Dipstick 0.2 mg/dL (0.2 mg/dL) Urine Leukocyte Esterase Negative (NEG) Urine RBC 0 /HPF (0-2) Urine WBC Rare /HPF (0-4) Urine Squamous Epithelial Cells Many /LPF Urine Bacteria 0 /HPF (0-FEW) Urine Hyaline Casts Many /HPF White Blood Count 5.0 x10^3/uL (4.0-11.0) Red Blood Count 4.63 x10^6/uL (3.50-5.40) Hemoglobin 12.5 g/dL (12.0-15.5) Hematocrit 38.0 % (36.0-47.0) Mean Corpuscular Volume 82 fL (79-100) Mean Corpuscular Hemoglobin 27 pg (25-35) Mean Corpuscular Hemoglobin Concent 33 g/dL (31-37) Red Cell Distribution Width 14.9 % (11.5-14.5) Platelet Count 150 x10^3/uL (140-400) Neutrophils (%) (Auto) 81 % (31-73) Lymphocytes (%) (Auto) 13 % (24-48) Monocytes (%) (Auto) 7 % (0-9) Eosinophils (%) (Auto) 0 % (0-3) Basophils (%) (Auto) 0 % (0-3) Neutrophils # (Auto) 4.0 x10^3uL (1.8-7.7) Lymphocytes # (Auto) 0.6 x10^3/uL (1.0-4.8) Monocytes # (Auto) 0.3 x10^3/uL (0.0-1.1) Eosinophils # (Auto) 0.0 x10^3/uL (0.0-0.7) Basophils # (Auto) 0.0 x10^3/uL (0.0-0.2) Sodium Level 135 mmol/L (136-145) Potassium Level 3.7 mmol/L (3.5-5.1) Chloride Level 99 mmol/L (98-107) Carbon Dioxide Level 24 mmol/L (21-32) Anion Gap 12 (6-14) Blood Urea Nitrogen 27 mg/dL (7-20) Creatinine 1.3 mg/dL (0.6-1.0) Estimated GFR (Cockcroft-Gault) 40.2 BUN/Creatinine Ratio 21 (6-20) Glucose Level 165 mg/dL (70-99) Calcium Level 8.6 mg/dL (8.5-10.1) Magnesium Level 1.2 mg/dL (1.8-2.4) Total Bilirubin 0.2 mg/dL (0.2-1.0) Aspartate Amino Transf (AST/SGOT) 34 U/L (15-37) Alanine Aminotransferase (ALT/SGPT) 32 U/L (14-59) Alkaline Phosphatase 77 U/L (46-116) Creatine Kinase 666 U/L (26-192) Creatine Kinase MB (Mass) 1.4 ng/mL (0.0-3.6) Creatine Kinase MB Relative Index 0.2 % (0-4) Troponin I Quantitative < 0.017 ng/mL (0.000-0.055) Total Protein 6.6 g/dL (6.4-8.2) Albumin 3.7 g/dL (3.4-5.0) Albumin/Globulin Ratio 1.3 (1.0-1.7) Influenza Type A Antigen Positive (NEGATIVE) Influenza Type B Antigen Negative (NEGATIVE) Glucose (Fingerstick) 82 mg/dL (70-99) Test 08/23/18 03:55 08/23/18 07:11 08/23/18 11:45 08/23/18 16:29 Sodium Level 138 mmol/L (136-145) Potassium Level 3.4 mmol/L (3.5-5.1) Chloride Level 102 mmol/L (98-107) Carbon Dioxide Level 24 mmol/L (21-32) Anion Gap 12 (6-14) Blood Urea Nitrogen 29 mg/dL (7-20) Creatinine 1.1 mg/dL (0.6-1.0) Estimated GFR (Cockcroft-Gault) 48.7 Glucose Level 108 mg/dL (70-99) Calcium Level 8.2 mg/dL (8.5-10.1) Glucose (Fingerstick) 96 mg/dL (70-99) 149 mg/dL (70-99) 113 mg/dL (70-99) Test 08/23/18 20:32 08/24/18 08:12 Glucose (Fingerstick) 150 mg/dL (70-99) 128 mg/dL (70-99) Laboratory Tests Test 08/23/18 11:45 08/23/18 16:29 08/23/18 20:32 08/24/18 08:12 Glucose (Fingerstick) 149 mg/dL (70-99) 113 mg/dL (70-99) 150 mg/dL (70-99) 128 mg/dL (70-99) Medications Current Medications Sodium Chloride 1,000 ml @ 1,000 mls/hr 1X ONCE IV Last administered on 19:52; Start 08/22/18 at 20:00; Stop 08/22/18 at 20:59; Status DC Oseltamivir Phosphate (Tamiflu) 30 mg BID PO Last administered on 08/24/18 09: 38; Start 08/22/18 at 21:00; Stop 08/27/18 at 20:59 Sodium Chloride 1,000 ml @ 75 mls/hr [id number] IV Last administered on 11:26; Start 08/22/18 at 21:00; Stop 08/23/18 at 15:27; Status DC Guaifenesin (Robitussin Dm) 10 ml PRN Q6HRS PRN PO COUGH Last administered on 06:44; Start 08/22/18 at 20:15 Acetaminophen (Tylenol) 500 mg PRN Q6HRS PRN PO MILD PAIN / TEMP Last administered on 08/24/18 00:33; Start 08/22/18 at 20:15 Albuterol Sulfate (Ventolin Neb Soln) 2.5 mg PRN Q4HRS PRN NEB SHORTNESS OF BREATH Last administered on 08/24/18 07:31; Start 08/22/18 at 20:15 Cetirizine HCl (ZyrTEC) 10 mg PRN DAILY PRN PO ALLERGIES; Start 08/22/18 at 20: 15 Temazepam (Restoril) 7.5 mg PRN QHS PRN PO INSOMNIA; Start 08/22/18 at 20:15 Metoprolol Tartrate (Lopressor) 50 mg BID PO Last administered on 08/24/18 09: 17; Start 08/22/18 at 21:00 Lisinopril (Prinivil) 20 mg [id number] PO Last administered on 08/24/18 09:17; Start 08/23/18 at 09:00 Metformin HCl (Glucophage) 500 mg BIDWMEALS PO Last administered on 08/24/18 09:17; Start 08/23/18 at 08:00 Vitamin D (Vitamin D3) 1,000 unit DAILY PO Last administered on 08/24/18at 09:17 ; Start 08/23/18 at 09:00 Insulin Human Lispro (HumaLOG) 0-7 UNITS TIDWMEALS SQ ; Start 08/23/18 at 08:00 Dextrose (Dextrose 50%-Water Syringe) 12.5 gm PRN Q15MIN PRN IV SEE COMMENTS; Start 08/22/18 at 20:30 Hydrochlorothiazide (Microzide) 12.5 mg [id number] PO Last administered on at 09:17; Start 08/23/18 at 09:00 Ceftriaxone Sodium (Rocephin) 1 gm 1X ONCE IVP Last administered on 08/22/18at 22:46; Start 08/22/18 at 22:00; Stop 08/22/18 at 22:01; Status DC Azithromycin 500 mg/Sodium Chloride 250 ml @ 250 mls/hr 1X ONCE IV Last administered on 08/22/18at 22:46; Start 08/22/18 at 22:00; Stop 08/22/18 at 22:59 ; Status DC Azithromycin 500 mg/Sodium Chloride 250 ml @ 250 mls/hr Q24H IV Last administered on 08/23/18at 11:26; Start 08/23/18 at 11:00 Ceftriaxone Sodium (Rocephin) 1 gm Q24H IVP Last administered on 08/23/18at 11: 26; Start 08/23/18 at 12:00 Sodium Chloride 1,000 ml @ 75 mls/hr [id number] IV Last administered on at 00:34; Start 08/23/18 at 10:45 Active Scripts Active Flagyl (Metronidazole) 500 Mg Tablet 500 Mg PO TID Cipro (Ciprofloxacin Hcl) 500 Mg Tablet 1 Tab PO BID Reported [vitamin d] Lisinopril-Hctz 20-12.5 Mg Tab (Lisinopril/Hydrochlorothiazide) 1 Each Tablet 1 Tab PO BID Metformin Hcl 500 Mg Tablet 500 Mg PO BIDWMEALS Metoprolol Tartrate 50 Mg Tablet 1 Tab PO BID Vitals/I & O Vital Sign - Last 24 Hours 08/23/18 08/23/18 08/23/18 08/23/18 11:00 12:32 15:00 16:39 Temp 98.3 97.8 98.3 97.8 Pulse 82 85 Resp 20 14 B/P (MAP) 109/51 (70) 105/52 (69) Pulse Ox 92 96 O2 Delivery Room Air Room Air Room Air Room Air 08/23/18 08/23/18 08/23/18 08/23/18 17:09 19:00 20:00 20:45 Temp 98.8 98.8 Pulse 67 86 Resp 14 B/P (MAP) 144/39 106/58 (74) Pulse Ox 98 O2 Delivery Room Air Room Air Room Air 08/23/18 08/23/18 08/24/18 08/24/18 20:55 23:00 03:00 07:00 Temp 98.8 98.5 98.4 98.8 98.5 98.4 Pulse 86 71 92 95 Resp 14 14 16 B/P (MAP) 106/58 108/59 (75) 136/54 (81) 144/79 (100) Pulse Ox 93 94 94 O2 Delivery Room Air Room Air Room Air 08/24/18 08/24/18 08/24/18 07:31 09:17 09:17 Pulse 95 95 B/P (MAP) 144/79 144/79 O2 Delivery Room Air Intake and Output 08/23/18 08/23/18 08/24/18 14:59 22:59 06:59 Intake Total 360 ml 240 ml 120 ml Balance 360 ml 240 ml 120 ml KIKO NARAYANAN III DO Aug 24, 2018 10:54
[2018-08-24 11:00] VITALS: BP 102/55
--- NOTE | 2018-08-24 11:24 | NUR ---
SW following. Discussed with RN, pt is from home alone and gets around fine at home. Pt using a walker here due to being winded. OT recommending home indp. No SW needs at this time, SW will continue to follow.
[2018-08-24] MEDS: AZITHROMYCIN 500 MG in IV NORMAL SALINE 250ML 250 ML IV SCH (11:30)
--- NOTE | 2018-08-24 12:20 | HP ---
ADMIT DATE: CHIEF COMPLAINT: Shortness of breath and cough, weakness. HISTORY OF PRESENT ILLNESS: The patient is a pleasant elderly female who presented with shortness breath, cough and weakness. She rated it as 7/10. She has associated nausea. It has been occurring for several days. We checked a flu swab in the ER, she has influenza. She also has a right lower lobe pneumonia. We are going to admit the patient, give her IV antibiotics, breathing treatments, oxygen, Tamiflu. PAST MEDICAL HISTORY: Arthritis and hypertension. ALLERGIES: None. FAMILY HISTORY: Hypertension. SOCIAL HISTORY: She does not drink, smoke or take drugs. She is retired. MEDICATIONS: Reviewed, please refer to the MRAD. REVIEW OF SYSTEMS: GENERAL: No history of weight change, weakness or fevers. SKIN: No bruising, hair changes or rashes. EYES: No blurred, double or loss of vision. NOSE AND THROAT: No history of nosebleeds, hoarseness or sore throat. HEART: No history of palpitations, chest pain or shortness of breath on exertion. LUNGS: She complains of shortness of breath. GASTROINTESTINAL: Denies changes in appetite, nausea, vomiting, diarrhea or constipation. GENITOURINARY: No history of frequency, urgency, hesitancy or nocturia. NEUROLOGIC: Denies history of numbness, tingling, tremor or weakness. PSYCHIATRIC: No history of panic, anxiety or depression. ENDOCRINE: No history of heat or cold intolerance, polyuria or polydipsia. EXTREMITIES: Denies muscle weakness, joint pain, pain on walking or stiffness. PHYSICAL EXAMINATION: VITAL SIGNS: Temperature afebrile, pulse 98, respirations 18, blood pressure 142/90. GENERAL: She is alert, weak. HEART: Normal S1, S2. LUNGS: Coarse. ABDOMEN: Soft. EXTREMITIES: No edema. SKIN: No rash. ENDOCRINE: No thyromegaly. LYMPHATICS: No cervical nodes. HEMATOPOIETIC: No bruising. LABORATORY DATA: Reviewed. ASSESSMENT AND PLAN: Flu and pneumonia. The patient has been admitted. We will start Z-KELLY, IV Rocephin and Tamiflu. DuoNebs, O2 per nasal cannula, PT and OT, home meds, frequent labs. DVT prophylaxis. Full code. KIKO NARAYANAN DO DR: ROSALES/tommy JOB#: [id number] / [id number]
[2018-08-24] MEDS: LACTOBACILLUS RHAMNOSUS GG 1 CAPSULE. PO SCH ×2 (12:21→21:26)
[2018-08-24] MEDS: cefTRIAXone IV Push 1 GM VIAL. IVP SCH (12:22)
[2018-08-24 15:00] VITALS: BP 125/64
[2018-08-24] MEDS: BENZONATATE 100 MG CAPSULE. PO SCH ×2 (16:55→21:26)
[2018-08-24] MEDS: BENZOCAINE/MENTHOL LOZENGE. PO PRN (16:56)
[2018-08-24 19:00] VITALS: BP 129/49
[2018-08-24 23:00] VITALS: BP 126/63
[2018-08-25 02:53] VITALS: BP 137/67
[2018-08-25] MEDS: BENZOCAINE/MENTHOL LOZENGE. PO PRN (04:53)
[2018-08-25] MEDS: guaiFENesin DM 200MG/20MG 10 ML SYRUP PO PRN (04:53)
[2018-08-25] MEDS: IV NORMAL SALINE 1000ML BAG 1,000 ML IV SCH (04:53)
[2018-08-25 07:15] VITALS: BP 124/58
[2018-08-25] MEDS: ALBUTEROL SULFATE 2.5 MG/3 ML NEBU. NEB PRN ×2 (07:30→11:22)
[2018-08-25] MEDS: INSULIN LISPRO 300 UNITS/3 ML INSULN.PEN. SQ SCH (08:00)
[2018-08-25] MEDS: OSELTAMIVIR 30 MG CAPSULE PO SCH (09:00)
[2018-08-25] MEDS: METOPROLOL TART IMMED RELEASE 50 MG TABLET. PO SCH (09:00)
[2018-08-25] MEDS: LACTOBACILLUS RHAMNOSUS GG 1 CAPSULE. PO SCH (09:29)
[2018-08-25] MEDS: CHOLECALCIFEROL (VITAMIN D3) 1,000 UNIT TABLET PO SCH (09:29)
[2018-08-25] MEDS: metFORMIN 500 MG TABLET PO SCH (09:29)
[2018-08-25] MEDS: BENZONATATE 100 MG CAPSULE. PO SCH (09:31)
[2018-08-25 09:32] VITALS: BP 137/67
[2018-08-25] MEDS: LISINOPRIL 20 MG TABLET PO SCH (09:32)
[2018-08-25] MEDS: hydroCHLOROthiazide 12.5 MG CAPSULE PO SCH (09:38)
--- NOTE | 2018-08-25 10:33 | NUR ---
SW following. Discussed with RN and Dr. Swanson, plan on discharge home today with self care. Pt's daughter agreeable and feels as though pt will be fine at home. No SW needs.
[2018-08-25] MEDS: AZITHROMYCIN 500 MG in IV NORMAL SALINE 250ML 250 ML IV SCH (11:00)
--- NOTE | 2018-08-25 11:35 | PDOC ---
PROGRESS NOTES Chief Complaint Chief Complaint Influenza A Pneumonia Weakness Cough COPD Dehydration Hypokalemia History of Present Illness History of Present Illness Pt was seen and examined in room today Taking a shower upon arrival, ambulated across the room well using walker She had a coughing spell with no production Stated that her cough was keeping her up at night and her throat was hurting from all her coughing After the coughing spell, she was breathing well and appeared comfortable sitting on the bed Discussed with RN Discussed with family at bedside Vitals Vitals Vital Signs Date Time Temp Pulse Resp B/P (MAP) Pulse Ox O2 Delivery O2 Flow Rate FiO2 08/25/18 11:23 Room Air 08/25/18 09:32 52 137/67 08/25/18 07:31 93 08/25/18 02:53 98.2 18 98.2 Physical Exam General: Alert, Oriented X3, Cooperative, No acute distress Heart: Regular rate, Normal S1, Normal S2 Lungs: Other (Decreased BS bilaterally, but improving without crackles or wheezing) Abdomen: Normal bowel sounds, Soft Extremities: No clubbing, No cyanosis Skin: No rashes, No breakdown Labs LABS Laboratory Tests Test 08/24/18 12:01 08/24/18 16:31 08/24/18 21:03 08/25/18 07:49 Glucose (Fingerstick) 168 mg/dL (70-99) 156 mg/dL (70-99) 104 mg/dL (70-99) 133 mg/dL (70-99) Review of Systems Review of Systems Pt reports cough and throat soreness, mild SOB, [place] following coughing spells Pt denies CP, n/v Assessment and Plan Assessmemt and Plan Problems Medical Problems: (1) Pneumonia and influenza Status: Acute Assessment Influenza A Pneumonia Weakness Cough COPD Dehydration Hypokalemia Plan Will likely D/C home today with HH and family to care for Pt Daughter at bedside agreed with sending pt home Continue ABx- zithromax and rocephin Continue Tamiflu Lozenges for cough and throat discomfort Home meds SS insulin PT/OT Plan to D/C home today Comment Review of Relevant I have reviewed the following items argelia (where applicable) has been applied. Labs Laboratory Tests Test 08/23/18 11:45 08/23/18 16:29 08/23/18 20:32 08/24/18 08:12 Glucose (Fingerstick) 149 mg/dL (70-99) 113 mg/dL (70-99) 150 mg/dL (70-99) 128 mg/dL (70-99) Test 08/24/18 12:01 08/24/18 16:31 08/24/18 21:03 08/25/18 07:49 Glucose (Fingerstick) 168 mg/dL (70-99) 156 mg/dL (70-99) 104 mg/dL (70-99) 133 mg/dL (70-99) Laboratory Tests Test 08/24/18 12:01 08/24/18 16:31 08/24/18 21:03 08/25/18 07:49 Glucose (Fingerstick) 168 mg/dL (70-99) 156 mg/dL (70-99) 104 mg/dL (70-99) 133 mg/dL (70-99) Medications Current Medications Sodium Chloride 1,000 ml @ 1,000 mls/hr 1X ONCE IV Last administered on 19:52; Start 08/22/18 at 20:00; Stop 08/22/18 at 20:59; Status DC Oseltamivir Phosphate (Tamiflu) 30 mg BID PO Last administered on 08/25/18 09: 00; Start 08/22/18 at 21:00; Stop 08/27/18 at 20:59 Sodium Chloride 1,000 ml @ 75 mls/hr [id number] IV Last administered on 11:26; Start 08/22/18 at 21:00; Stop 08/23/18 at 15:27; Status DC Guaifenesin (Robitussin Dm) 10 ml PRN Q6HRS PRN PO COUGH Last administered on 04:53; Start 08/22/18 at 20:15 Acetaminophen (Tylenol) 500 mg PRN Q6HRS PRN PO MILD PAIN / TEMP Last administered on 08/24/18at 00:33; Start 08/22/18 at 20:15 Albuterol Sulfate (Ventolin Neb Soln) 2.5 mg PRN Q4HRS PRN NEB SHORTNESS OF BREATH Last administered on 08/25/18at 11:22; Start 08/22/18 at 20:15 Cetirizine HCl (ZyrTEC) 10 mg PRN DAILY PRN PO ALLERGIES; Start 08/22/18 at 20: 15 Temazepam (Restoril) 7.5 mg PRN QHS PRN PO INSOMNIA; Start 08/22/18 at 20:15 Metoprolol Tartrate (Lopressor) 50 mg BID PO Last administered on 08/24/18 21: 26; Start 08/22/18 at 21:00 Lisinopril (Prinivil) 20 mg [id number] PO Last administered on 08/25/18 09:32; Start 08/23/18 at 09:00 Metformin HCl (Glucophage) 500 mg BIDWMEALS PO Last administered on 08/25/18 09:29; Start 08/23/18 at 08:00 Vitamin D (Vitamin D3) 1,000 unit DAILY PO Last administered on 08/25/18 09:29 ; Start 08/23/18 at 09:00 Insulin Human Lispro (HumaLOG) 0-7 UNITS TIDWMEALS SQ Last administered on 08/24 16:43; Start 08/23/18 at 08:00 Dextrose (Dextrose 50%-Water Syringe) 12.5 gm PRN Q15MIN PRN IV SEE COMMENTS; Start 08/22/18 at 20:30 Hydrochlorothiazide (Microzide) 12.5 mg [id number] PO Last administered on 09:38; Start 08/23/18 at 09:00 Ceftriaxone Sodium (Rocephin) 1 gm 1X ONCE IVP Last administered on 08/22/18 22:46; Start 08/22/18 at 22:00; Stop 08/22/18 at 22:01; Status DC Azithromycin 500 mg/Sodium Chloride 250 ml @ 250 mls/hr 1X ONCE IV Last administered on 08/22/18 22:46; Start 08/22/18 at 22:00; Stop 08/22/18 at 22:59 ; Status DC Azithromycin 500 mg/Sodium Chloride 250 ml @ 250 mls/hr Q24H IV Last administered on 08/24/18 11:30; Start 08/23/18 at 11:00 Ceftriaxone Sodium (Rocephin) 1 gm Q24H IVP Last administered on 08/24/18 12: 22; Start 08/23/18 at 12:00 Sodium Chloride 1,000 ml @ 75 mls/hr [id number] IV Last administered on 04:53; Start 08/23/18 at 10:45 Lactobacillus Rhamnosus (Culturelle) 1 cap BID PO Last administered on 09:29; Start 08/24/18 at 12:00 Benzonatate (Tessalon Perle) 100 mg [id number] PO Last administered on 08/25/18 09 :31; Start 08/24/18 at 17:00 Throat Lozenges (Cepacol Sore Throat Lozenge) 1 flaquito PRN Q2HRS PRN PO SORE THROAT Last administered on 08/25/18 04:53; Start 08/24/18 at 16:45 Active Scripts Active Flagyl (Metronidazole) 500 Mg Tablet 500 Mg PO TID Cipro (Ciprofloxacin Hcl) 500 Mg Tablet 1 Tab PO BID Reported [vitamin d] Lisinopril-Hctz 20-12.5 Mg Tab (Lisinopril/Hydrochlorothiazide) 1 Each Tablet 1 Tab PO BID Metformin Hcl 500 Mg Tablet 500 Mg PO BIDWMEALS Metoprolol Tartrate 50 Mg Tablet 1 Tab PO BID Vitals/I & O Vital Sign - Last 24 Hours 08/24/18 08/24/18 08/24/18 08/24/18 15:00 16:35 17:01 19:00 Temp 98.2 98.0 98.2 98.0 Pulse 98 98 81 Resp 16 18 B/P (MAP) 125/64 (84) 125/64 129/49 (75) Pulse Ox 97 95 O2 Delivery Room Air Room Air Room Air 08/24/18 08/24/18 08/24/18 08/25/18 20:00 21:26 23:00 02:53 Temp 98.2 98.2 98.2 98.2 Pulse 81 94 52 Resp 18 18 B/P (MAP) 129/49 126/63 (84) 137/67 (90) Pulse Ox 94 95 O2 Delivery Room Air Room Air Room Air 08/25/18 08/25/18 08/25/18 08/25/18 07:31 08:00 09:00 09:32 Pulse 52 52 B/P (MAP) 137/67 137/67 Pulse Ox 93 O2 Delivery Room Air Room Air 08/25/18 11:23 O2 Delivery Room Air Intake and Output 3/19/19 3/19/19 3/20/19 15:00 23:00 07:00 Intake Total 440 ml Balance 440 ml KIKO NARAYANAN III DO Aug 25, 2018 11:35
[2018-08-25] MEDS ORDERED: OSEL75CA PO (11:48)
[2018-08-25] MEDS ORDERED: AMOX1TAB61 PO (11:48)
--- NOTE | 2018-08-25 12:44 | NUR ---
Pt was discharged to home at 1230 today in stable condition with all personal belongings after reviewing all pertinent information including education, medications, follow up and at home care. Pt was escorted via wc and accompanied by staff to the main exit where she drove herself home.
--- NOTE | 2018-08-25 13:51 | DS ---
DATE OF DISCHARGE: 08/25/2018 ADMISSION DIAGNOSES: Dehydration and influenza. DISCHARGE DIAGNOSIS: Resolving influenza. HOSPITAL COURSE: The patient is a pleasant 73-year-old female. Basically, she presented with weakness and cough and had influenza. She was admitted. We gave her IV antibiotics, p.o. Tamiflu, DuoNebs and oxygen, did some physical therapy, occupational therapy. Over the past few days, she has returned to her baseline. This morning, I saw her, her heart tones were normal. Her lungs were clear. We plan to discharge her home. DISPOSITION: Home. ACTIVITY: As tolerated. DIET: Low sodium. MEDICATIONS: Please see MRAD. TOTAL TIME: 31 minutes. KIKO NARAYANAN DO DR: ROSALES/tommy JOB#: [id number] / [id number]
== END 2018-08-25 12:30 | disposition home or self-care (01) | DRG 871 ==
LOC: ER 17:25 → 4 NORTH 19:47 → UNDODISIN 08-24 13:40
PROVIDERS: ADMIT Internal Medicine; ATTEND Internal Medicine
DX: A41.9 Sepsis, unspecified organism (principal); J10.08 Influenza due to other identified influenza virus with other specified pneumonia; J18.1 Lobar pneumonia, unspecified organism; J44.0 Chronic obstructive pulmonary disease with (acute) lower respiratory infection; I10 Essential (primary) hypertension; E11.9 Type 2 diabetes mellitus without complications; E86.0 Dehydration; M19.90 Unspecified osteoarthritis, unspecified site; E87.6 Hypokalemia; E66.9 Obesity, unspecified; Z82.49 Family history of ischemic heart disease and other diseases of the circulatory system; Z90.49 Acquired absence of other specified parts of digestive tract; Z68.33 Body mass index [BMI] 33.0-33.9, adult
CPT/HCPCS: 36415; 71046; 80048; 80053; 81001; 82553; 82962; 83735; 84484; 85025; 87804; 93005; 94640; 94760; 96360; J0456; J0696; J1815; J7030; J7050; J7613; 97530; 97535; 99285-25

== ENCOUNTER 2019-02-05 08:08 | Emergency (ER) | payer MEDICARE ==
[~2019-02-05] VITALS: Ht 160 cm; Wt 81.6 kg
[~2019-02-05 08:08] MED LIST changes: +AMOX1TAB61 PO; +LISI1TAB19 PO; -LISI1TAB5 PO; +OSEL75CA PO
[2019-02-05 08:33] VITALS: BP 177/103
[2019-02-05] MEDS ORDERED: HYDR-3164 PO (09:26)
--- NOTE | 2019-02-05 09:26 | PHYS DOC ---
Past Medical History Past Medical History: Diabetes-Type II, Hypertension Additional Past Medical Histor: obesity, "bad knees", incontinent Past Surgical History: Appendectomy, Cholecystectomy, Hysterectomy, Other Additional Past Surgical Histo: LEFT CATARACTS Alcohol Use: None Drug Use: None Adult General Chief Complaint Chief Complaint: UPPER EXTREMITY INJURY [facility] HPI Patient is a 73 year old right handed female who presents with leg of right forearm pain. Patient states she came back and felt pain in right forearm yesterday that did not get better with upright ice and taking [id number] pain medication. Patient denies focal neurodeficit and history of forearm. Review of Systems Review of Systems Constitutional: Denies fever or chills [] Eyes: Denies change in visual acuity, redness, or eye pain [] HENT: Denies nasal congestion or sore throat [] Respiratory: Denies cough or shortness of breath [] Cardiovascular: No additional information not addressed in HPI [] GI: Denies abdominal pain, nausea, vomiting, bloody stools or diarrhea [] : Denies dysuria or hematuria [] Musculoskeletal: Denies back pain, reports joint pain [] Integument: Denies rash or skin lesions [] Neurologic: Denies headache, focal weakness or sensory changes [] Endocrine: Denies polyuria or polydipsia [] All other systems were reviewed and found to be within normal limits, except as documented in this note. Allergies Allergies Allergies Coded Allergies Type Severity Reaction Last Updated Verified pneumococcal vaccine Allergy Severe Anaphylaxis 08/22/18 Yes clindamycin Allergy Intermediate 12/24/16 Yes iodine Allergy Intermediate 12/24/16 Yes sulfamethoxazole Allergy Intermediate 12/24/16 Yes trimethoprim Allergy Intermediate 12/24/16 Yes Physical Exam Physical Exam Constitutional: Well developed, well nourished, mild distress, non-toxic appearance. [] HENT: Normocephalic, atraumatic. Eyes: PERRLA, EOMI, conjunctiva normal, no discharge. [] Neck: Normal range of motion, no tenderness, supple, no stridor. [] Cardiovascular:Heart rate regular rhythm, no murmur [] Lungs & Thorax: Bilateral breath sounds clear to auscultation [] Extremities: Right forearm without deformity or contusion or edema,mild tenderness of the mid forearm No tenderness, painful range of motion. Neurologic: Alert and oriented X 3, no focal deficits noted. [] Psychologic: Affect normal, judgement normal, mood normal. [] Current Patient Data Vital Signs Vital Signs Date Time Temp Pulse Resp B/P (MAP) Pulse Ox O2 Delivery O2 Flow Rate FiO2 02/05/19 08:33 98.6 88 177/103 (127) 97 Room Air 98.6 EKG EKG [] Radiology/Procedures Radiology/Procedures [facility] [address] [place] [address] IMAGING REPORT Signed PATIENT: YOSEF GRAVES ACCOUNT: [id number] : 1945 LOCATION: ER AGE: 73 SEX: F EXAM STATUS: REG ER ORD. PHYSICIAN: VANESA MENEZES MD REASON: injury, PATIENT WAS LIFTING PLASTIC GROCERY BAGS ON HER FOREAMR YESTERDAY PROCEDURE: FOREARM RIGHT FOREARM RIGHT History: Pain after injury. FINDINGS: No evidence of acute fracture. No gross soft tissue abnormality. The visualized joints are grossly intact. IMPRESSION: No evidence of acute fracture. Electronically signed by: Saurav Bae MD (02/05/2019 9:27 AM) [facility] DICTATED and SIGNED BY: SAURAV BAE MD DATE: 02/05/19926 Course & Med Decision Making Course & Med Decision Making Pertinent Imaging studies reviewed. (See chart for details) Evaluation of patient in ER showed 73-year-old male patient with right forearm indirect injury with unremarkable exam and x-ray. Adrian wrap was applied and patient was advised to apply ice on the affected area and follow up with her primary care physician. Dragon Disclaimer Dragon Disclaimer This electronic medical record was generated, in whole or in part, using a voice recognition dictation system. Departure Departure Impression: Primary Impression: Strain of right forearm Disposition: HOME, SELF-CARE (at 0924) Condition: STABLE Referrals: UNKNOWN PCP NAME (PCP) Patient Instructions: Muscle Strain Additional Instructions: Apply ice on affected area Follow-up with your primary care physician in 3-5 days Return to ER if not getting better Scripts Hydrocodone/Apap 5-325 (NORCO 5-325 TABLET) 1 Each Tablet 1 TAB PO PRN Q8HRS PRN for PAIN, #10 TAB 0 Refills Prov: VANESA MENEZES MD 02/05/19 Problem Qualifiers Primary Impression: Strain of right forearm Encounter type: initial encounter Qualified Codes: S56.911A - Strain of unspecified muscles, fascia and tendons at forearm level, right arm, initial encounter VANESA MENEZES MD Feb 05, 2019 09:26
--- NOTE | 2019-02-05 09:30 | RAD ---
FOREARM RIGHT History: Pain after injury. FINDINGS: No evidence of acute fracture. No gross soft tissue abnormality. The visualized joints are grossly intact. IMPRESSION: No evidence of acute fracture. Electronically signed by: Saurav Bea MD (02/05/2019 9:27 AM) [facility]
== END 2019-02-05 09:58 | disposition home or self-care (01) ==
LOC: ER 08:08
DX: S56.911A Strain of unspecified muscles, fascia and tendons at forearm level, right arm, initial encounter (principal); E11.9 Type 2 diabetes mellitus without complications; I10 Essential (primary) hypertension; E66.9 Obesity, unspecified; Z68.31 Body mass index [BMI] 31.0-31.9, adult; Z88.0 Allergy status to penicillin; Z88.1 Allergy status to other antibiotic agents; Z88.2 Allergy status to sulfonamides; Z88.8 Allergy status to other drugs, medicaments and biological substances; Z88.7 Allergy status to serum and vaccine; X50.0XXA Overexertion from strenuous movement or load, initial encounter; Y93.89 Activity, other specified; Y92.89 Other specified places as the place of occurrence of the external cause; Y99.8 Other external cause status
CPT/HCPCS: 73090; 99284